=== PATIENT | male | born 2000 | race Caucasian/White ===

== ENCOUNTER 2023-01-14 17:35 | Emergency (ER) | payer OTHER ==
[2023-01-14] MEDS ORDERED: Acetaminophen/HYDROcodone 325-5 MG Tab PO ONE (17:59)
== END 2023-01-14 19:57 | disposition home or self-care (01) ==
LOC: MW.ED 17:35
DX: S42.402A Unspecified fracture of lower end of left humerus, initial encounter for closed fracture (principal); V27.49XA Other motorcycle driver injured in collision with fixed or stationary object in traffic accident, initial encounter; Y92.410 Unspecified street and highway as the place of occurrence of the external cause
CPT/HCPCS: 29105; 73030; 73070; 73090; 99284; A9270; 99283